=== PATIENT | male | born 1990 | race Caucasian/White ===

== ENCOUNTER 2017-01-02 12:55 | Emergency (ER) | payer MEDICAID ==
[~2017-01-02] VITALS: Ht 175.3 cm; Wt 75.0 kg
[2017-01-02] MEDS ORDERED: MAGN500C4 PO (13:03)
[2017-01-02] MEDS ORDERED: KEPP500 PO (13:03)
[2017-01-02] MEDS ORDERED: TETANUS, DIPHTHERIA, PERTUSSIS VAC/PF 0.5ML (>7YR OLD) IM ONE (13:45)
[2017-01-02] MEDS ORDERED: BACITRACIN ZINC OINT UDPKT TOP ONE (13:45)
[2017-01-02] MEDS ORDERED: IBUPROFEN 600MG TABLET PO ONE (15:30)
[2017-01-02 16:17] VITALS: BP 134/83
[2017-01-02 17:17] LABS: *AMPHETAMINES SCREEN URINE PRESUMTIVE POSITIVE (NEGATIVE); *BARBITURATES SCREEN URINE NEGATIVE (NEGATIVE); *BENZODIAZEPINES SCREEN URINE NEGATIVE (NEGATIVE); *COCAINE SCREEN URINE NEGATIVE (NEGATIVE); CANNABINOID URINE SCREEN NEGATIVE (NEGATIVE); METHADONE URINE SCREEN NEGATIVE (NEGATIVE); OPIATES URINE SCREEN NEGATIVE (NEGATIVE); PHENCYCLIDINE URINE SCREEN NEGATIVE (NEGATIVE)
== END 2017-01-02 17:28 | disposition home or self-care (01) ==
LOC: ER 13:10
DX: S92.001A Unspecified fracture of right calcaneus, initial encounter for closed fracture (principal); S92.002A Unspecified fracture of left calcaneus, initial encounter for closed fracture; Y93.33 Activity, BASE jumping
CPT/HCPCS: 72131; 73700; 80305; 90471; 90715; 99285

== ENCOUNTER 2017-06-12 14:59 | Emergency (ER) | payer MEDICAID ==
[~2017-06-12] VITALS: Ht 177.8 cm; Wt 73.0 kg
[~2017-06-12 14:59] MED LIST: KEPP500 PO; MAGN500C4 PO
[2017-06-12] MEDS ORDERED: SODIUM CHLORIDE 0.9% 1,000 ML IV ONE ×2 (15:32→19:21)
[2017-06-12] MEDS ORDERED: OLANZAPINE 10 MG/VIAL IM ONE ×2 (16:00→18:15)
[2017-06-12] MEDS ORDERED: MIDAZOLAM HCL 2 MG/2 ML VIAL IM ONE (16:00)
[2017-06-12 16:47] LABS: HEMATOCRIT. 48.2 % (42.0-52.0); HEMOGLOBIN. 16.7 g/dL (14.0-18.0); MEAN CORPUSCULAR HEMOGLOBIN 32.2 pg (28.0-32.0); MEAN CORPUSCULAR VOLUME 93.2 fL (80.0-94.0); MEAN PLATELET VOLUME 9.2 fl (7.4-10.4); PLATELET 266 x1000/uL (130-400); RED BLOOD CELL COUNT 5.18 mill/uL (4.7-6.1); RED CELL DISTRIBUTION WIDTH 14.2 % (11.6-14.6)
[2017-06-12 16:50] LABS: CHLORIDE 104 mEq/L (98-107)
[2017-06-12 16:52] LABS: PARTIAL THROMBOPLASTIN TIME 23.3 sec (23.4-31.0); PROTHROMBIN TIME 10.9 sec (9.4-11.6)
[2017-06-12 16:56] LABS: ETHANOL BLOOD < 10 mg/dL
[2017-06-12 17:14] LABS: PLATELET ESTIMATE NORMAL
[2017-06-12] MEDS ORDERED: MIDAZOLAM HCL 2 MG/2 ML VIAL IV ONE (18:00)
[2017-06-12] MEDS ORDERED: DEXT 5%/0.45% NACL KCL 20MEQ/L 1,000 ML IV ONE (19:21)
[2017-06-12] MEDS ORDERED: LEVETIRACETAM 500MG PREMIX 100 ML IV ONE (19:45)
[2017-06-12 20:03] LABS: CLARITY URINE CLEAR (CLEAR); COLOR URINE YELLOW (YELLOW); KETONES URINE NEGATIVE (NEGATIVE); LEUKOCYTE ESTERASE URINE NEGATIVE (NEGATIVE); NITRITE URINE NEGATIVE (NEGATIVE); OCCULT BLOOD URINE 1+ (NEGATIVE); PH URINE 5.5 (4.5-8.0); PROTEIN URINE TRACE (NEGATIVE); SPECIFIC GRAVITY URINE 1.035 (1.005-1.030); UROBILINOGEN URINE 0.2 E.U./dL (0.2-1.0)
[2017-06-12] MEDS: LEVETIRACETAM 500 MG in SODIUM CHLORIDE 0.9% 100 ML IV SCH (20:06)
[2017-06-12] MEDS ORDERED: IOHEXOL-300 100 ML BOTTLE ONE (20:08)
[2017-06-12 20:17] LABS: *AMPHETAMINES SCREEN URINE PRESUMTIVE POSITIVE (NEGATIVE); *BARBITURATES SCREEN URINE NEGATIVE (NEGATIVE); *BENZODIAZEPINES SCREEN URINE PRESUMTIVE POSITIVE (NEGATIVE)
[2017-06-12 20:18] LABS: *COCAINE SCREEN URINE NEGATIVE (NEGATIVE); CANNABINOID URINE SCREEN PRESUMTIVE POSITIVE (NEGATIVE); METHADONE URINE SCREEN NEGATIVE (NEGATIVE); OPIATES URINE SCREEN NEGATIVE (NEGATIVE); PHENCYCLIDINE URINE SCREEN NEGATIVE (NEGATIVE)
[2017-06-13] MEDS: LEVETIRACETAM 500 MG in SODIUM CHLORIDE 0.9% 100 ML IV SCH (07:45)
[2017-06-13 13:13] VITALS: BP 128/71
== END 2017-06-13 13:14 | disposition home or self-care (01) ==
LOC: ER 16:23
DX: T14.91XA Suicide attempt, initial encounter (principal); R10.9 Unspecified abdominal pain; S09.90XA Unspecified injury of head, initial encounter; F17.200 Nicotine dependence, unspecified, uncomplicated; F15.10 Other stimulant abuse, uncomplicated; F12.10 Cannabis abuse, uncomplicated; S69.91XA Unspecified injury of right wrist, hand and finger(s), initial encounter; R56.9 Unspecified convulsions; X58.XXXA Exposure to other specified factors, initial encounter; Y92.9 Unspecified place or not applicable
CPT/HCPCS: 36415; 51702; 70450; 71045; 71260; 72125; 73130; 74177; 80053; 80305; 80307; 80329; 81003; 85025; 85610; 85730; 96361; 96365; 96372; 96375; 99291; G0482; J1953; J2250; J3490; J7030; Q9967; Z7610; A4565; J7050

== ENCOUNTER 2018-12-02 23:57 | Emergency (ER) | payer MEDICAID, OTHER ==
[~2018-12-02] VITALS: Ht 172.7 cm; Wt 80.0 kg
[2018-12-03] MEDS ORDERED: SODIUM CHLORIDE 0.9% 1,000 ML IV ONE (00:27)
[2018-12-03] MEDS ORDERED: ONDANSETRON HCL 4MG/2ML INJ IV ONE (00:45)
[2018-12-03 00:46] LABS: BASOPHILS % 0.5 % (0.0-2.0); EOSINOPHILS % 0.4 % (0.0-5.0); HEMATOCRIT. 43.2 % (42.0-52.0); LYMPHOCYTES % 10.3 % (20.0-50.0); MEAN CORPUSCULAR HEMOGLOBIN 32.6 pg (28.0-32.0); MEAN PLATELET VOLUME 9.4 fl (7.4-10.4); MONOCYTES % 11.7 % (2.0-8.0); NEUTROPHILS % 77.1 % (40.0-76.0); PLATELET 191 x1000/uL (130-400); RED CELL DISTRIBUTION WIDTH 13.8 % (11.6-14.6)
[2018-12-03 00:48] LABS: CHLORIDE 105 mEq/L (98-107)
[2018-12-03 00:52] LABS: ETHANOL BLOOD < 10 mg/dL
[2018-12-03] MEDS ORDERED: IOHEXOL-300 100 ML BOTTLE ONE (01:50)
[2018-12-03 02:45] LABS: CLARITY URINE CLEAR (CLEAR); COLOR URINE YELLOW (YELLOW); KETONES URINE 3+ (NEGATIVE); LEUKOCYTE ESTERASE URINE NEGATIVE (NEGATIVE); NITRITE URINE NEGATIVE (NEGATIVE); OCCULT BLOOD URINE 2+ (NEGATIVE); PROTEIN URINE TRACE (NEGATIVE); SPECIFIC GRAVITY URINE 1.021 (1.005-1.030); UROBILINOGEN URINE 0.2 E.U./dL (0.2-1.0)
[2018-12-03] MEDS ORDERED: LORAZEPAM 1MG TABLET PO ONE (02:45)
[2018-12-03 02:58] LABS: *AMPHETAMINES SCREEN URINE PRESUMTIVE POSITIVE (NEGATIVE); *BARBITURATES SCREEN URINE NEGATIVE (NEGATIVE); *BENZODIAZEPINES SCREEN URINE NEGATIVE (NEGATIVE); *COCAINE SCREEN URINE NEGATIVE (NEGATIVE); METHADONE URINE SCREEN NEGATIVE (NEGATIVE); OPIATES URINE SCREEN NEGATIVE (NEGATIVE)
[2018-12-03 03:00] LABS: CANNABINOID URINE SCREEN PRESUMTIVE POSITIVE (NEGATIVE); PHENCYCLIDINE URINE SCREEN NEGATIVE (NEGATIVE)
[2018-12-03] MEDS ORDERED: OLANZAPINE 10 MG/VIAL IM ONE ×3 (03:30→04:00)
[2018-12-03 08:26] VITALS: BP 116/70
== END 2018-12-03 08:29 | disposition home or self-care (01) ==
LOC: ER 23:57
DX: R55 Syncope and collapse (principal); S09.8XXA Other specified injuries of head, initial encounter; F23 Brief psychotic disorder; R07.89 Other chest pain; F10.129 Alcohol abuse with intoxication, unspecified; Y90.0 Blood alcohol level of less than 20 mg/100 ml; F15.10 Other stimulant abuse, uncomplicated; G40.909 Epilepsy, unspecified, not intractable, without status epilepticus; F12.10 Cannabis abuse, uncomplicated; F17.210 Nicotine dependence, cigarettes, uncomplicated; Z78.1 Physical restraint status; Z98.890 Other specified postprocedural states; W01.190A Fall on same level from slipping, tripping and stumbling with subsequent striking against furniture, initial encounter; Y93.89 Activity, other specified; Y92.013 Bedroom of single-family (private) house as the place of occurrence of the external cause
CPT/HCPCS: 36415; 70450; 71045; 80053; 80305; 80320; 81003; 82962; 83735; 84484; 85025; 93005; 96361; 96372; 96374; 99284; J2405; J3490; J7030; Q9967; Z7610; G0480